=== PATIENT | female | born 1945 | race Caucasian/White ===

== ENCOUNTER 2019-03-21 17:47 | Emergency (ER) | payer OTHER ==
--- NOTE | 2019-03-21 18:55 | ER ---
Nurse's Notes [facility] Name: Ruchi Luna Age: 73 yrs Sex: Female : 1945 Arrival Date: 03/21/2019 Time: 17:49 Bed 26 Private MD: Diagnosis: Groin pain Presentation: 03/21 17:56 Presenting complaint: Patient states: "I have sciatica and it's flaring up and I can't aa5 get my medicine refilled because I moved and my insurance changed". 17:56 Acuity: TANVIR 4 aa5 17:59 Transition of care: patient was not received from another setting of care. Onset of aa5 symptoms was March 21, 2019. Risk Assessment: Do you want to hurt yourself or someone else? Patient reports no desire to harm self or others. Initial Sepsis Screen: Does the patient meet any 2 criteria? No. Patient's initial sepsis screen is negative. Does the patient have a suspected source of infection? No. Patient's initial sepsis screen is negative. Care prior to arrival: None. 17:59 Method Of Arrival: Wheelchair aa5 Historical: - Allergies: 17:59 Erythromycin; aa5 - PMHx: 17:59 Sciatica; Hyperlipidemia; aa5 - PSHx: 17:59 Hysterectomy; Cholecystectomy; Appendectomy; cataracts; aa5 - Immunization history:: Flu vaccine is not up to date. - Social history:: Smoking status: Patient/guardian denies using tobacco. - Ebola Screening: : No symptoms or risks identified at this time. Screenin:04 Abuse screen: Denies threats or abuse. Nutritional screening: No deficits noted. tw2 Tuberculosis screening: No symptoms or risk factors identified. Fall Risk Secondary diagnosis (15 points) impaired mobility. Assessment: 18:24 General: Appears in no apparent distress. comfortable, Behavior is calm, cooperative. mg2 Pain: Complains of pain in both hip Pain does not radiate. Pain currently is 10 out of 10 on a pain scale. Quality of pain is described as aching, Pain began gradually, Is intermittent. Neuro: Level of Consciousness is awake, alert, obeys commands, Oriented to person, place, time, situation. Cardiovascular: Capillary refill < 3 seconds Patient's skin is warm and dry. Respiratory: Airway is patent Respiratory effort is even, unlabored, Respiratory pattern is regular, symmetrical. GI: No deficits noted. : No signs and/or symptoms were reported regarding the genitourinary system. EENT: No deficits noted. Derm: Skin is intact, is healthy with good turgor, Skin is pink, warm \\T\\ dry. normal. Musculoskeletal: Circulation, motion, and sensation intact. Capillary refill < 3 seconds, Reports pain in both hip. Vital Signs: 17:59 BP 102 / 50; Pulse 103; Resp 18 S; Temp 98.3(TE); Pulse Ox 95% on R/A; Weight 61.23 kg aa5 (R); Height 5 ft. 5 in. (165.10 cm) (R); Pain 10/10; 17:59 Body Mass Index 22.46 (61.23 kg, 165.10 cm) aa5 ED Course: 17:49 Patient arrived in ED. as 17:57 Triage completed. aa5 17:57 Arm band placed on. aa5 18:04 Bed in low position. Call light in reach. Adult w/ patient. security monitor on. Pulse tw2 ox on. NIBP on. 18:05 José Purvis, RN is Primary Nurse. mg2 18:25 No provider procedures requiring assistance completed. mg2 18:35 [facility] kb 18:36 Kevin Kearns MD is Attending Physician. kb 19:11 Patient did not have IV access during this emergency room visit. tw2 Administered Medications: No medications were administered Outcome: 18:54 Discharge ordered by MD. kb 19:10 Discharged to home via wheelchair, with family. tw2 19:10 Condition: stable 19:10 Discharge instructions given to patient, family, Instructed on discharge instructions, follow up and referral plans. medication usage, Demonstrated understanding of instructions, follow-up care, medications, Prescriptions given X 2. 19:11 Patient left the ED. tw2 Signatures: Odessa Sandhu FNP-C FNP-[facility] Audri, RN RN aa5 Rosys Jalloh RN RN tw2 José Purvis, MICHAEL RODRIGUEZ mg2
--- NOTE | 2019-03-21 18:55 | EDPHYS ---
Physician Documentation [facility] Name: Ruchi Luna Age: 73 yrs Sex: Female : 1945 Arrival Date: 03/21/2019 Time: 17:49 Bed 26 Private MD: ED Physician Kevin Kearns HPI: 03/22 02:17 This 73 yrs old Female presents to ER via Wheelchair with complaints of kb Sciatica. 02:17 Pt reports she has been diagnosed with sciatica on the left side and now has the exact kb same symptoms on the right side. States her doctor gave her tramadol and a steroid pack for the left side and it got better in a few days. Reports the right side started hurting 3 weeks ago when she moved here from [place]. States the pain started at the lower buttock and radiates around groin. Denies back pain and radiated pain down the leg. Onset: The symptoms/episode began/occurred 3 week(s) ago. Severity of symptoms: At their worst the symptoms were moderate in the emergency department the symptoms are unchanged. The patient has experienced a previous episode. The patient has not recently seen a physician. Historical: - Allergies: 03/21 17:59 Erythromycin; aa5 - PMHx: 17:59 Sciatica; Hyperlipidemia; aa5 - PSHx: 17:59 Hysterectomy; Cholecystectomy; Appendectomy; cataracts; aa5 - Immunization history:: Flu vaccine is not up to date. - Social history:: Smoking status: Patient/guardian denies using tobacco. - Ebola Screening: : No symptoms or risks identified at this time. ROS: 03/22 02:16 Constitutional: Negative for fever, chills, and weight loss, Cardiovascular: Negative kb for chest pain, palpitations, and edema, Respiratory: Negative for shortness of breath, cough, wheezing, and pleuritic chest pain, Abdomen/GI: Negative for abdominal pain, nausea, vomiting, diarrhea, and constipation, Skin: Negative for injury, rash, and discoloration, Neuro: Negative for headache, weakness, numbness, tingling, and seizure. MS/extremity: Positive for pain, of the left gluteal fold, right gluteal fold, right femoral area and left femoral area. Exam: 02:16 Constitutional: This is a well developed, well nourished patient who is awake, alert, kb and in no acute distress. Head/Face: Normocephalic, atraumatic. ENT: Nares patent. No nasal discharge, no septal abnormalities noted. Tympanic membranes are normal and external auditory canals are clear. Oropharynx with no redness, swelling, or masses, exudates, or evidence of obstruction, uvula midline. Mucous membranes moist. Neck: Trachea midline, no thyromegaly or masses palpated, and no cervical lymphadenopathy. Supple, full range of motion without nuchal rigidity, or vertebral point tenderness. No Meningismus. Chest/axilla: Normal chest wall appearance and motion. Nontender with no deformity. No lesions are appreciated. Cardiovascular: Regular rate and rhythm with a normal S1 and S2. No gallops, murmurs, or rubs. Normal PMI, no JVD. No pulse deficits. Respiratory: Lungs have equal breath sounds bilaterally, clear to auscultation and percussion. No rales, rhonchi or wheezes noted. No increased work of breathing, no retractions or nasal flaring. Abdomen/GI: Soft, non-tender, with normal bowel sounds. No distension or tympany. No guarding or rebound. No evidence of tenderness throughout. Back: No spinal tenderness. No costovertebral tenderness. Full range of motion. Skin: Warm, dry with normal turgor. Normal color with no rashes, no lesions, and no evidence of cellulitis. MS/ Extremity: Pulses equal, no cyanosis. Neurovascular intact. Full, normal range of motion. Neuro: Awake and alert, GCS 15, oriented to person, place, time, and situation. Cranial nerves II-XII grossly intact. Motor strength 5/5 in all extremities. Sensory grossly intact. Cerebellar exam normal. Normal gait. 02:16 Abdomen/GI: Rectal exam: rectal tone normal, hemorrhoid(s), external, without bleeding, without inflammation, without thrombosis, without pain. Vital Signs: 03/21 17:59 BP 102 / 50; Pulse 103; Resp 18 S; Temp 98.3(TE); Pulse Ox 95% on R/A; Weight 61.23 kg aa5 (R); Height 5 ft. 5 in. (165.10 cm) (R); Pain 10/10; 17:59 Body Mass Index 22.46 (61.23 kg, 165.10 cm) aa5 MDM: 18:36 Patient medically screened. kb 03/22 02:15 Data reviewed: vital signs, nurses notes. Data interpreted: Pulse oximetry: on room air kb is 95 %. Interpretation: normal. Counseling: I had a detailed discussion with the patient and/or guardian regarding: the historical points, exam findings, and any diagnostic results supporting the discharge/admit diagnosis, the need for outpatient follow up, a family practitioner, to return to the emergency department if symptoms worsen or persist or if there are any questions or concerns that arise at home. Administered Medications: No medications were administered Disposition: 03/21/19 18:54 Discharged to Home. Impression: Groin pain. - Condition is Stable. - Discharge Instructions: Musculoskeletal Pain, Sciatica, [id number]. - Prescriptions for Tramadol 50 mg Oral Tablet - take 1 tablet by ORAL route every 8 hours as needed; 12 tablet. Medrol (Kenji) 4 mg Oral Tablets, Dose Pack - take 1 tablet by ORAL route as directed - follow package instructions; 1 packet. - Medication Reconciliation Form, Thank You Letter, Antibiotic Education, Prescription Opioid Use form. - Follow up: Emergency Department; When: As needed; Reason: Worsening of condition. Follow up: Private Physician; When: 2 - 3 days; Reason: Recheck today's complaints, Continuance of care, Re-evaluation by your physician. Addendum: 03/25/2019 08:39 Co-signature as Attending Physician, Kevin Kearns MD I agree with the assessment and k dr plan of care. Signatures: Odessa Sandhu, MANAGER MED SURG-C MANAGER MED SURG-Ckb Kevin Kearns MD MD [facility] Nenita Goldsmith RN RN aa5 Rossy Jalloh RN RN tw2 Corrections: (The following items were deleted from the chart) 03/21 19:11 18:54 03/21/2019 18:54 Discharged to Home. Impression: Groin pain. Condition is Stable. tw2 Discharge Instructions: Sciatica, [id number]. Forms are Medication Reconciliation Form, Thank You Letter, Antibiotic Education, Prescription Opioid Use. Follow up: Emergency Department; When: As needed; Reason: Worsening of condition. Follow up: Private Physician; When: 2 - 3 days; Reason: Recheck today's complaints, Continuance of care, Re-evaluation by your physician. kb 03/22 02:17 02:16 Constitutional: This is a well developed, well nourished patient who is awake, kb alert, and in no acute distress. Head/Face: Normocephalic, atraumatic. ENT: Nares patent. No nasal discharge, no septal abnormalities noted. Tympanic membranes are normal and external auditory canals are clear. Oropharynx with no redness, swelling, or masses, exudates, or evidence of obstruction, uvula midline. Mucous membranes moist. Neck: Trachea midline, no thyromegaly or masses palpated, and no cervical lymphadenopathy. Supple, full range of motion without nuchal rigidity, or vertebral point tenderness. No Meningismus. Chest/axilla: Normal chest wall appearance and motion. Nontender with no deformity. No lesions are appreciated. Cardiovascular: Regular rate and rhythm with a normal S1 and S2. No gallops, murmurs, or rubs. Normal PMI, no JVD. No pulse deficits. Respiratory: Lungs have equal breath sounds bilaterally, clear to auscultation and percussion. No rales, rhonchi or wheezes noted. No increased work of breathing, no retractions or nasal flaring. Abdomen/GI: Soft, non-tender, with normal bowel sounds. No distension or tympany. No guarding or rebound. No evidence of tenderness throughout. Skin: Warm, dry with normal turgor. Normal color with no rashes, no lesions, and no evidence of cellulitis. Neuro: Awake and alert, GCS 15, oriented to person, place, time, and situation. Cranial nerves II-XII grossly intact. Motor strength 5/5 in all extremities. Sensory grossly intact. Cerebellar exam normal. Normal gait. kb
== END 2019-03-21 19:11 | disposition home or self-care (01) ==
LOC: ER 17:47
DX: R10.30 Lower abdominal pain, unspecified (principal); Z88.3 Allergy status to other anti-infective agents
CPT/HCPCS: 99284

== ENCOUNTER → 2019-08-12 | Day surgery (SDC) | payer OTHER ==
--- NOTE | 2019-08-12 10:36 | RAD REPORT ---
EXAM DESCRIPTION: US - Follow Up Breast Axilla Ltd - 08/12/2019 10:10 am CLINICAL HISTORY: N63.20, R92.8 COMPARISON: Follow Up Breast Axilla Comp dated 07/31/2019 FINDINGS: Preprocedure left breast sonography was performed prior to ultrasound-guided core needle b iopsy. During pre-procedure ultrasound, and the vague subcentimeter lesion in the periareolar left breast wa s difficult to localize. The lesions seen on 07/31/2019 ultrasound was difficult to reproduce with co nfidence for biopsy. For this reason, biopsy was deferred at this time. Thus, it is recommended that a diagnostic left breast mammogram and surveillance ultrasound of the left breast be performed in 6 [facility] for continued monitoring. IMPRESSION: It was difficult to confidently reproduce the 4 mm lesion periareolar left breast previo usly noted on today's pre-procedure radiologist directed ultrasound. Ultrasound-guided core biopsy wa s thus deferred at this time. It is recommended the patient undergo six-month follow-up left breast d iagnostic mammography and left breast ultrasound for monitoring. BI-RAD: 3, probably benign ResultCode: PB6
== END | disposition home or self-care (01) ==
LOC: DS 09:27
PROVIDERS: ATTEND Family Medicine
DX: N63.20 Unspecified lump in the left breast, unspecified quadrant (principal); R92.8 Other abnormal and inconclusive findings on diagnostic imaging of breast; Z53.8 Procedure and treatment not carried out for other reasons
CPT/HCPCS: 76642

== ENCOUNTER 2019-09-27 18:45 | Emergency (ER) | payer OTHER ==
--- OUTSIDE RECORDS SUMMARY | 2019-09-27 18:47 | XMS REPORT ---
:1945 Author Organization [employer] Care Team Providers Name Role Phone Alexandra Paula Provider Role Unavailable Allergies, Adverse Reactions, Alerts Substance Reaction Event Type erthromycin upset stomach Drug Allergy Aspirin rash Drug Allergy Problems Problem Type Condition Code Onset Dates Condition Status Problem Tremor R25.1 Active Problem Osteoporosis screening Z13.820 Active Problem Vaginal discharge N89.8 Active Problem Hemorrhoids, unspecified hemorrhoid K64.9 Active type Problem Osteoarthritis of right hip, M16.11 Active unspecified osteoarthritis type Problem Vaginal yeast infection B37.3 Active Problem Hyperlipidemia, unspecified E78.5 Active hyperlipidemia type Problem Abnormality of left breast on R92.8 Active screening mammogram Problem Age-related osteoporosis without M81.0 Active current pathological fracture Problem Other chronic pain G89.29 Active Problem Depression screening Z13.31 Active Assessment Hemorrhoids, unspecified hemorrhoid K64.9 Active type Assessment Vaginal yeast infection B37.3 Active Problem High cholesterol E78.00 Active Problem Coccygeal pain M53.3 Active Problem History of left hip replacement Z96.642 Active Problem Gallstones K80.20 Active Problem Postnasal drip R09.82 Active Problem Rectal pain K62.89 Active Medications Medication Code Code Instructions Start End Status Dosage System Date Date Meloxicam [facility] NAMED [facility] [address]-18 7.5 MG Orally Mar 28, Active 1 tablet as Once daily 2019 needed for pain; take with food or milk Simvastatin ND 43988480524 10 MG Orally Active 1 tablet in Once a day the evening Trazodone HCl ND 39294893716 50 MG Orally Active 1 tablet at Once a day bedtime as needed Fluconazole ND 99106545497 150 MG Orally Sep 18, Sep 20, Active as directed 1 tablet now; 2019 2019 repeat prn in 3 days if still symptomatic Gabapentin ND 82589143295 100 MG Orally Active 1 capsule as Twice a day needed for pain B Complex ND 41716021536 - Orally Active as directed Align ND 28952901087 - Orally Active as directed Proctofoam HC ND 42831147937 1-1 % Rectal Sep 18October Active 1 application Three times a 2019 to rectal day 2019 area Propranolol FORMER[facility] NAMED [facility] 65042429804 10 MG Orally Active 1 tablet on HCl Once a day an empty stomach Results No Known Results Summary Purpose [employer] Submission
--- OUTSIDE RECORDS SUMMARY | 2019-09-27 18:47 | XMS REPORT ---
:1945 Author Organization [employer] Care Team Providers Name Role Phone Alexandra Paula Provider Role Unavailable Allergies No Known Allergies Problems Problem Type Condition Code Onset Dates [...] Active Problem Depression screening Z13.31 Active Assessment Coccygeal pain M53.3 Active Problem High cholesterol E78.00 Active Problem Coccygeal pain M53.3 Active Problem History of left hip replacement Z96.642 Active Problem Gallstones K80.20 Active Problem Postnasal drip R09.82 Active Problem Rectal pain K62.89 Active Medications Medication Code System Code Instructions Start End Date Status Dosage Date Meloxicam [facility] 10582376057 15 MG Orally Once Mar 28, Active 1/2 tablet daily 2020 to 1 tablet Results No Known Results Summary Purpose [employer] Submission
--- NOTE | 2019-09-27 19:50 | RAD REPORT ---
EXAM DESCRIPTION: RAD - Chest Single View - 09/27/2019 7:39 pm CLINICAL HISTORY: COUGH Chest pain. COMPARISON: No comparisons FINDINGS: Portable technique limits examination quality. The lungs are emphysematous but grossly clear. The heart is normal in size. No displaced fractures. IMPRESSION: Mild COPD.
--- NOTE | 2019-09-27 19:50 | RAD REPORT ---
EXAM DESCRIPTION: CT - Head Brain Wo Cont - 09/27/2019 7:41 pm CLINICAL HISTORY: DIZZINESS Headache, drowsiness COMPARISON: No comparisons TECHNIQUE: All CT scans are performed using dose optimization technique as appropriate and may inclu de automated exposure control or mA/KV adjustment according to patient size. FINDINGS: No intracranial hemorrhage, hydrocephalus or extra-axial fluid collection.Mild generalized brain atrophy is present with mild periventricular and deep white matter chronic microvascular ische gail changes.No areas of brain edema or evidence of midline shift. The paranasal sinuses and mastoids are clear. The calvarium is intact. IMPRESSION: No acute intracranial abnormality.
--- NOTE | 2019-09-27 20:25 | RAD REPORT ---
EXAM DESCRIPTION: US - CP - 09/27/2019 8:07 pm CLINICAL HISTORY: DIZZINESS Headache, drowsiness COMPARISON: No comparisons TECHNIQUE: Real-time sonographic evaluation of both carotid systems was performed. Doppler interroga tion was performed with waveform tracing bilaterally. FINDINGS: Normal high resistance waveforms are noted in both external carotid arteries. The common c arotid arteries and internal carotid arteries show normal low resistance waveforms. Mild hard plaquing is seen in both carotid bulbs, slightly greater on the left. Peak systolic and end diastolic velocity values and the ICA/CCA ratios are in the non-hemodynamically significant range. Antegrade flow seen in both vertebral arteries. IMPRESSION: Mild hard plaquing is seen in both carotid bulbs, slightly greater on the left. No evidence of a hemodynamically significant stenosis.
[2019-09-27] MEDS ORDERED: MECLIZINE HCL 12.5 MG TAB ONE (20:32)
[2019-09-27] MEDS ORDERED: NA CHLORIDE 0.9% 1,000 ML ONE (20:32)
[2019-09-27] MEDS ORDERED: ONDANSETRON 4 MG/2 ML VIAL ONE (20:32)
[2019-09-27] MEDS ORDERED: NA CHLORIDE 0.9% 500 ML ONE (20:32)
[2019-09-27 20:41] LABS: Absolute Lymphocytes (CBC) 0.9 K/uL (0.7-4.9); Basophils % 0.9 % (0-1.3); Lymphocytes % 10.7 % (15.3-44.8); MPV 9.9 fL (7.6-11.3); RBC Red Blood Cell Count 4.72 M/uL (3.86-4.86)
[2019-09-27 20:46] LABS: Protime INR 1.08
[2019-09-27 21:05] LABS: ALT/SGPT 24 U/L (12-78); AST/SGOT 20 U/L (15-37); Albumin 3.1 g/dL (3.4-5.0); Alkaline Phosphatase 70 U/L (45-117); BUN Blood Urea Nitrogen 20 mg/dL (7-18); Bicarbonate 28 mmol/L (21-32); Bilirubin Direct 0.1 mg/dL (0-0.2); Bilirubin Total 0.4 mg/dL (0.2-1.0); Glucose Level 134 mg/dL (74-106); Lipase 123 U/L (73-393); Magnesium 2.1 mg/dL (1.8-2.4); NT PRO-BNP 79 pg/mL (<125); Potassium 3.8 mmol/L (3.5-5.1); Protein, Total 6.7 g/dL (6.4-8.2); Sodium Level 143 mmol/L (136-145); Troponin (Emerg Dept Use Only) < 0.02 ng/mL (0.0-0.045)
--- NOTE | 2019-09-27 21:25 | EDPHYS ---
Physician Documentation [facility] Name: Ruchi Luna Age: 73 yrs Sex: Female : 1945 Arrival Date: 09/27/2019 Time: 18:59 Bed 30 Private MD: ED Physician Baron Chavez HPI: 09/27 19:28 This 73 yrs old Female presents to ER via EMS with complaints of dizziness. leela 19:28 The patient complains of pain to the top of head, forehead, left frontal area and right leela frontal area. The patient describes the headache as aching. Onset: The symptoms/episode began/occurred just prior to arrival, today. didn't eat, conti, dizziness. The patient presents with dizziness. Onset: The symptoms/episode began/occurred just prior to arrival. Context: occurred while the patient was shopping at [employer]. Associated signs and symptoms: The patient has no apparent associated signs or symptoms. Historical: - Allergies: 19:05 Erythromycin; wh 19:05 CORN CONTAINING PRODUCTS; wh 19:05 Tomato (Solanum Lycopersicum); wh 19:05 Aspirin; wh 19:05 EGG/POULTRY; wh 19:05 Milk/dairy products; wh - PMHx: 19:05 Hyperlipidemia; sciatica; wh - PSHx: 19:05 Appendectomy; Cholecystectomy; wh - Immunization history:: Adult Immunizations not up to date. - Coronavirus screen:: The patient has NOT traveled to [place], [place], or [place] in the past 14 days. - Social history:: Smoking status: Patient/guardian denies using. - Family history:: not pertinent. - Ebola Screening: : Patient negative for fever greater than or equal to 101.5 degrees Fahrenheit, and additional compatible Ebola Virus Disease symptoms Patient denies exposure to infectious person. ROS: 19:28 Constitutional: Negative for fever, chills, and weight loss, Eyes: Negative for injury, leela pain, redness, and discharge, ENT: Negative for injury, pain, and discharge, Neck: Negative for injury, pain, and swelling, Cardiovascular: Negative for chest pain, palpitations, and edema, Respiratory: Negative for shortness of breath, cough, wheezing, and pleuritic chest pain, Abdomen/GI: Negative for abdominal pain, nausea, vomiting, diarrhea, and constipation, Back: Negative for injury and pain, : Negative for injury, bleeding, discharge, and swelling, MS/Extremity: Negative for injury and deformity, Skin: Negative for injury, rash, and discoloration, Psych: Negative for depression, anxiety, suicide ideation, homicidal ideation, and hallucinations, Allergy/Immunology: Negative for hives, rash, and allergies, Endocrine: Negative for neck swelling, polydipsia, polyuria, polyphagia, and marked weight changes, Hematologic/Lymphatic: Negative for swollen nodes, abnormal bleeding, and unusual bruising. 19:28 Neuro: Positive for dizziness. Exam: 19:28 Constitutional: This is a well developed, well nourished patient who is awake, alert, leela and in no acute distress. Head/Face: Normocephalic, atraumatic. Eyes: Pupils equal round and reactive to light, extra-ocular motions intact. Lids and lashes normal. Conjunctiva and sclera are non-icteric and not injected. Cornea within normal limits. Periorbital areas with no swelling, redness, or edema. ENT: Nares patent. No nasal discharge, no septal abnormalities noted. Tympanic membranes are normal and external auditory canals are clear. Oropharynx with no redness, swelling, or masses, exudates, or evidence of obstruction, uvula midline. Mucous membranes moist. Neck: Trachea midline, no thyromegaly or masses palpated, and no cervical lymphadenopathy. Supple, full range of motion without nuchal rigidity, or vertebral point tenderness. No Meningismus. Chest/axilla: Normal chest wall appearance and motion. Nontender with no deformity. No lesions are appreciated. Cardiovascular: Regular rate and rhythm with a normal S1 and S2. No gallops, murmurs, or rubs. Normal PMI, no JVD. No pulse deficits. Respiratory: Lungs have equal breath sounds bilaterally, clear to auscultation and percussion. No rales, rhonchi or wheezes noted. No increased work of breathing, no retractions or nasal flaring. Abdomen/GI: Soft, non-tender, with normal bowel sounds. No distension or tympany. No guarding or rebound. No evidence of tenderness throughout. Back: No spinal tenderness. No costovertebral tenderness. Full range of motion. Female : Normal external genitalia. Skin: Warm, dry with normal turgor. Normal color with no rashes, no lesions, and no evidence of cellulitis. MS/ Extremity: Pulses equal, no cyanosis. Neurovascular intact. Full, normal range of motion. Neuro: Awake and alert, GCS 15, oriented to person, place, time, and situation. Cranial nerves II-XII grossly intact. Motor strength 5/5 in all extremities. Sensory grossly intact. Cerebellar exam normal. Normal gait. Psych: Awake, alert, with orientation to person, place and time. Behavior, mood, and affect are within normal limits. 19:28 Neck: ROM/movement: is normal, no acute changes, Meningeal signs: are not present, Kernig's sign is negative, Brudzinski's sign is negative. 19:28 Cardiovascular: Rate: normal, Rhythm: regular, Pulses: Pulses are 4+ in bilateral radial, brachial, femoral, popliteal, posterior tibial and and dorsalis pedis arteries.. Heart sounds: normal, normal S1and S2, no S3 or S4, no murmur, no rub, no gallop, Edema: is not appreciated, JVD: is not appreciated. 19:28 Musculoskeletal/extremity: DVT Exam: No signs of deep vein thrombosis. no pain, no swelling, no tenderness, negative Homans' sign noted on exam, no appreciated bluish discoloration, no erythema, no increased warmth. Vital Signs: 19:05 BP 106 / 79; Pulse 85; Resp 18; Temp 97.5; Pulse Ox 98% ; Weight 61.23 kg; Height 5 ft. wh 5 in. (165.10 cm); 19:30 BP 109 / 52; Pulse 87; Resp 18; Pulse Ox 97% on R/A; Pain 0/10; vc 20:45 BP 102 / 62; Pulse 85; Resp 18; Pulse Ox 96% on R/A; vc 21:45 BP 110 / 72; Pulse 87; Resp 18; Pulse Ox 97% on R/A; vc 19:05 Body Mass Index 22.46 (61.23 kg, 165.10 cm) MDM: 19:18 Patient medically screened. [facility] 19:31 Data reviewed: vital signs, nurses notes, lab test result(s), EKG, radiologic studies, [facility] CT scan, doppler. 09/27 19:27 Order name: Basic Metabolic Panel; Complete Time: 21:22 [facility] 09/27 19:27 Order name: CBC with Diff; Complete Time: 21:01 [facility] 09/27 19:27 Order name: LFT's; Complete Time: 21:22 [facility] 09/27 19:27 Order name: Magnesium; Complete Time: 21:22 [facility] 09/27 19:27 Order name: NT PRO-BNP; Complete Time: 21:22 [facility] 09/27 19:27 Order name: PT-INR; Complete Time: 21:01 [facility] 09/27 19:27 Order name: Troponin (emerg Dept Use Only); Complete Time: 21:22 [facility] 09/27 19:27 Order name: XRAY Chest (1 view); Complete Time: 20:24 [facility] 09/27 19:27 Order name: Lipase; Complete Time: 21:22 [facility] 09/27 19:27 Order name: CT Head Brain wo Cont; Complete Time: 20:24 [facility] 09/27 19:27 Order name: Urine Culture [facility] 09/27 19:27 Order name: US Carotid Artery Bilateral; Complete Time: 20:38 [facility] 09/27 21:29 Order name: Urine Dipstick--Ancillary (enter results) 09/27 19:27 Order name: EKG; Complete Time: 19:28 [facility] 09/27 19:27 Order name: Cardiac monitoring; Complete Time: 20:19 [facility] 09/27 19:27 Order name: EKG - Nurse/Tech; Complete Time: 20:21 [facility] 09/27 19:27 Order name: IV Saline Lock; Complete Time: 20:33 [facility] 09/27 19:27 Order name: Labs collected and sent; Complete Time: 20:33 [facility] 09/27 19:27 Order name: O2 Per Protocol; Complete Time: 20:21 [facility] 09/27 19:27 Order name: O2 Sat Monitoring; Complete Time: 20:21 [facility] 09/27 19:27 Order name: Urine Dipstick-Ancillary (obtain specimen); Complete Time: 21:18 [facility] 09/27 19:27 Order name: Diet Heart Healthy; Complete Time: 19:29 [facility] Administered Medications: 20:30 Drug: NS 0.9% 500 ml Route: IV; Rate: bolus; Site: left antecubital; vc 20:30 Drug: Zofran 4 mg Route: IVP; Site: left antecubital; vc 21:30 Follow up: Response: No adverse reaction vc 20:30 Drug: Meclizine 25 mg Route: PO; vc 21:30 Follow up: Response: No adverse reaction vc 20:45 Drug: NS 0.9% 1000 ml Route: IV; Rate: 125 ml/hr; Site: left antecubital; vc 22:30 Follow up: IV Status: IV infiltrated; IV Intake: 300ml vc 22:10 Drug: Rocephin 1 grams {Note: Given left gluteus freedom.} Route: IV; Rate: per vc protocol; Site: Other; 22:10 Drug: Cipro 500 mg Route: PO; vc 22:29 Follow up: Response: Medication administered at discharge. vc Disposition: 09/27/19 21:24 Discharged to Home. Impression: Dizziness and giddiness, Urinary tract infection, site not specified. - Condition is Stable. - Discharge Instructions: Benign Positional Vertigo, Dizziness, Urinary Tract Infection, Adult, Vertigo, Urinary Tract Infection, Adult, [id number], Dizziness, [id number]. - Prescriptions for Meclizine 25 mg Oral Tablet - take 1 tablet by ORAL route every 8 hours As needed; 30 tablet. Zofran 4 mg Oral Tablet - take 1 tablet by ORAL route every 12 hours As needed; 14 tablet. Cipro 250 mg Oral Tablet - take 1 tablet by ORAL route every 12 hours; 14 tablet. - Medication Reconciliation Form, Thank You Letter, Antibiotic Education, Prescription Opioid Use form. - Follow up: Private Physician; When: 2 - 3 days; Reason: Recheck today's complaints, Continuance of care, Re-evaluation by your physician. Follow up: Lee Lee MD; When: 2 - 3 days; Reason: Recheck today's complaints, Re-evaluation by your physician. - Problem is chronic. - Symptoms have improved. Signatures: Dispatcher [employer] EDMS Baron Chavez MD MD cha Habalo, Winsy wh Cal[place]ote, Vanessa, RN RN vc Corrections: (The following items were deleted from the chart) 22:24 21:24 09/27/2019 21:24 Discharged to Home. Impression: Dizziness and giddiness; Urinary vc tract infection, site not specified. Condition is Stable. Discharge Instructions: Benign Positional Vertigo, Dizziness, Vertigo, Dizziness, Grrg-zk-[id number]. Prescriptions for Meclizine 25 mg Oral Tablet - take 1 tablet by ORAL route every 8 hours As needed; 30 tablet, Zofran 4 mg Oral Tablet - take 1 tablet by ORAL route every 12 hours As needed; 14 tablet. and Forms are Medication Reconciliation Form, Thank You Letter, Antibiotic Education, Prescription Opioid Use. Follow up: Private Physician; When: 2 - 3 days; Reason: Recheck today's complaints, Continuance of care, Re-evaluation by your physician. Follow up: Lee Lee; When: 2 - 3 days; Reason: Recheck today's complaints, Re-evaluation by your physician. Problem is chronic. Symptoms have improved. leela
--- NOTE | 2019-09-27 21:25 | ER ---
Nurse's Notes [facility] Name: Ruchi Luna Age: 73 yrs Sex: Female : 1945 Arrival Date: 09/27/2019 Time: 18:59 Bed 30 Private MD: Diagnosis: Dizziness and giddiness;Urinary tract infection, site not specified Presentation: 09/27 19:02 Presenting complaint: EMS states: Pt was shopping at [employer] for a couple of hours when she experienced dizziness and weakness. Denies LOC. Transition of care: patient was not received from another setting of care. Onset of symptoms was September 27, 2019. Risk Assessment: Do you want to hurt yourself or someone else? Patient reports no desire to harm self or others. Initial Sepsis Screen: Does the patient meet any 2 criteria? No. Patient's initial sepsis screen is negative. Does the patient have a suspected source of infection? No. Patient's initial sepsis screen is negative. Care prior to arrival: Glucose check: 145. 19:02 Method Of Arrival: EMS: [facility] 19:02 Acuity: TANVIR 3 wh Historical: - Allergies: 19:05 Erythromycin; wh 19:05 CORN CONTAINING PRODUCTS; wh 19:05 Tomato (Solanum Lycopersicum); wh 19:05 Aspirin; wh 19:05 EGG/POULTRY; wh 19:05 Milk/dairy products; wh - PMHx: 19:05 Hyperlipidemia; sciatica; wh - PSHx: 19:05 Appendectomy; Cholecystectomy; wh - Immunization history:: Adult Immunizations not up to date. - Coronavirus screen:: The patient has NOT traveled to [place], [place], or [place] in the past 14 days. - Social history:: Smoking status: Patient/guardian denies using. - Family history:: not pertinent. - Ebola Screening: : Patient negative for fever greater than or equal to 101.5 degrees Fahrenheit, and additional compatible Ebola Virus Disease symptoms Patient denies exposure to infectious person. Screenin:06 Abuse screen: Denies threats or abuse. Denies injuries from another. Nutritional wh screening: No deficits noted. Tuberculosis screening: No symptoms or risk factors identified. Fall Risk None identified. Assessment: 19:43 Reassessment: Patient to CT via wheelchair. vc 20:00 General: Appears in no apparent distress. uncomfortable, ill, Behavior is cooperative, vc appropriate for age, agitated. Pain: Denies pain. Neuro: Level of Consciousness is awake, alert, obeys commands, Oriented to person, place, time, situation. Neuro: Cardiovascular: Patient's skin is warm and dry. Respiratory: Respiratory effort is even, unlabored, Respiratory pattern is regular, symmetrical. GI: Abdomen is flat, Reports nausea. : Urine is cloudy, green. EENT: No signs and/or symptoms were reported regarding the EENT system. Derm: Skin temperature is cool. Musculoskeletal: Range of motion: intact in all extremities. 21:00 Reassessment: Patient and/or family updated on plan of care and expected duration. Pain vc level reassessed. Patient is alert, oriented x 3, equal unlabored respirations, skin warm/dry/pink. 22:00 Reassessment: Patient and/or family updated on plan of care and expected duration. Pain vc level reassessed. Patient is alert, oriented x 3, equal unlabored respirations, skin warm/dry/pink. Patient denies pain at this time. Patient states feeling better. Patient states symptoms have improved. Vital Signs: 19:05 BP 106 / 79; Pulse 85; Resp 18; Temp 97.5; Pulse Ox 98% ; Weight 61.23 kg; Height 5 ft. 5 in. (165.10 cm); 19:30 BP 109 / 52; Pulse 87; Resp 18; Pulse Ox 97% on R/A; Pain 0/10; vc 20:45 BP 102 / 62; Pulse 85; Resp 18; Pulse Ox 96% on R/A; vc 21:45 BP 110 / 72; Pulse 87; Resp 18; Pulse Ox 97% on R/A; vc 19:05 Body Mass Index 22.46 (61.23 kg, 165.10 cm) ED Course: 18:59 Patient arrived in ED. 19:02 Teressa Ny, RN is Primary Nurse. vc 19:03 Triage completed. 19:06 Arm band placed on right wrist. 19:07 Patient has correct armband on for positive identification. Bed in low position. Call light in reach. Side rails up X 1. Pulse ox on. NIBP on. 19:18 Baron Chavez MD is Attending Physician. [facility] 19:38 XRAY Chest (1 view) In Process Unspecified. EDMS 19:45 CT Head Brain wo Cont In Process Unspecified. EDMS 20:11 US Carotid Artery Bilateral In Process Unspecified. EDMS 20:32 Inserted saline lock: 22 gauge in left antecubital area, using aseptic technique. lt1 20:32 Initial lab(s) drawn, by me, sent to lab. EKG done, by ED staff, reviewed by Baron Chavez MD. 21:18 Straight cath inserted, using sterile technique, 16 Fr. Specimen obtained. Returned lt1 rosales urine. 21:18 Urine Culture Sent. lt1 21:24 Lee Lee MD is Referral Physician. leela 22:20 No provider procedures requiring assistance completed. IV discontinued, intact, vc bleeding controlled, No redness/swelling at site. Administered Medications: 20:30 Drug: NS 0.9% 500 ml Route: IV; Rate: bolus; Site: left antecubital; vc 20:30 Drug: Zofran 4 mg Route: IVP; Site: left antecubital; vc 21:30 Follow up: Response: No adverse reaction vc 20:30 Drug: Meclizine 25 mg Route: PO; vc 21:30 Follow up: Response: No adverse reaction vc 20:45 Drug: NS 0.9% 1000 ml Route: IV; Rate: 125 ml/hr; Site: left antecubital; vc 22:30 Follow up: IV Status: IV infiltrated; IV Intake: 300ml vc 22:10 Drug: Rocephin 1 grams {Note: Given left gluteus freedom.} Route: IV; Rate: per vc protocol; Site: Other; 22:10 Drug: Cipro 500 mg Route: PO; vc 22:29 Follow up: Response: Medication administered at discharge. vc Intake: 22:30 IV: 300ml; Total: 300ml. vc Outcome: 21:24 Discharge ordered by . leela 22:20 Discharged to home via wheelchair, with family. vc 22:20 Condition: good 22:20 Discharge instructions given to patient, family. 22:24 Patient left the ED. vc Signatures: Dispatcher [employer] EDBaron Arevalo MD MD cha Habalo, Kevin Nielson, Cecilia lt1 Teressa Ny RN RN vc Corrections: (The following items were deleted from the chart) 22:36 22:32 General: Appears in no apparent distress. uncomfortable, ill, Behavior is vc cooperative, appropriate for age, agitated, vc 22:36 22:32 Pain: Denies pain. vc vc 22:36 22:32 Neuro: Level of Consciousness is awake, alert, obeys commands, Oriented to vc person, place, time, situation, vc 22:36 22:32 Cardiovascular: Patient's skin is warm and dry. vc vc 22:36 22:32 Respiratory: Respiratory effort is even, unlabored, Respiratory pattern is vc regular, symmetrical, vc 22:36 22:32 GI: Abdomen is flat, Reports nausea, vc vc 22:36 22:32 : Urine is cloudy, green, vc vc 22:36 22:32 EENT: No signs and/or symptoms were reported regarding the EENT system. vc vc : 22:32 Derm: Skin temperature is cool vc vc 22:36 22:32 Musculoskeletal: Range of motion: intact in all extremities, vc vc 22:36 22:32 Neuro: vc vc 22:36 22:32 Musculoskeletal: vc vc :36 22:32 Musculoskeletal: vc vc 22:36 22:35 General: Appears Behavior is vc vc
[2019-09-27] MEDS ORDERED: CIPROFLOXACIN HCL 500 MG TAB ONE (21:46)
[2019-09-27] MEDS ORDERED: CEFTRIAXONE/SWI 1gm 1 GM/10 ML SYR ONE (21:46)
[2019-09-27 21:47] LABS: Urine Blood 1+ (NEG); Urine Glucose NEGATIVE (NEG); Urine Protein 2+ (NEG); Urine pH 5.5 (5.0-7.0)
[2019-09-27] MEDS ORDERED: LIDOCAINE 1% MPF 5 ML VIAL ONE (21:53)
[2019-09-27] MEDS ORDERED: CEFTRIAXONE 1000 MG/VIAL ONE (21:53)
[2019-09-27 22:32] VITALS: TEMP 97.5
[2019-09-27 22:33] VITALS: BP 109/52; O2SAT 97
--- NOTE | 2019-09-29 06:29 | EKG ---
Test Date: 2019-09-27 Test Time: 20:19:48 Pump House Operator: BEN MEASUREMENT RESULTS: Intervals: Rate: 81 DE: 130 QRSD: 74 QT: 384 QTc: 446 [place]: P: -4 DE: 130 QRS: 60 T: 41 INTERPRETIVE STATEMENTS: Normal sinus rhythm Cannot rule out Anterior infarct, age undetermined Abnormal ECG Compared to ECG 02/03/1997 08:09:00 Myocardial infarct finding now present Electronically Signed On 09-29-19 06:28:46 CHAIR UPHOLSTERER by Matt Love
== END 2019-09-27 22:24 | disposition home or self-care (01) ==
LOC: ER 18:45
DX: R42 Dizziness and giddiness (principal); N39.0 Urinary tract infection, site not specified; Z88.3 Allergy status to other anti-infective agents; Z91.018 Allergy to other foods; Z91.011 Allergy to milk products; Z91.012 Allergy to eggs
CPT/HCPCS: 96361; 93005; 85025; 87086; 80048; 36415; 83735; 85610; 80076; 81003; 84484; 83690; 83880; 70450; 71045; 93880; 51702; 96375; 96374; 99284; J0696; J7040; J7030; J2405; 87088; J8597

== ENCOUNTER 2019-10-19 12:54 | Emergency (ER) | payer OTHER ==
--- OUTSIDE RECORDS SUMMARY | 2019-10-19 12:56 | XMS REPORT ---
[...] End Status Dosage System Date Date Meloxicam [facility] [address]-80 7.5 MG Orally Mar 28, Active 1 tablet as Once daily 2019 needed for pain; take with food or milk Simvastatin ND 43174913859 10 MG Orally Active 1 tablet in Once a day the evening Trazodone HCl ND 52864334554 50 MG Orally Active 1 tablet at Once a day bedtime as needed Fluconazole ND 78328413010 150 MG Orally Sep 18, Sep 20, Active as directed 1 tablet now; 2019 2019 repeat prn in 3 days if still symptomatic Gabapentin ND 54699484932 100 MG Orally Active 1 capsule as Twice a day needed for pain B Complex ND 16244674142 - Orally Active as directed Align ND 27200869699 - Orally Active as directed Proctofoam HC ND 53079979072 1-1 % Rectal Sep 18October Active 1 application Three times a 2019 to rectal day 2019 area Propranolol [facility] 71106321305 10 MG Orally Active 1 tablet on HCl Once a day an empty stomach Results No Known Results Summary Purpose [employer] Submission
--- OUTSIDE RECORDS SUMMARY | 2019-10-19 12:56 | XMS REPORT ---
[...] Start End Date Status Dosage Date Meloxicam [facility] 95489186627 15 MG Orally Once Mar 28, Active 1/2 tablet daily 2020 to 1 tablet Results No Known Results Summary Purpose [employer] Submission
--- NOTE | 2019-10-19 13:24 | ER ---
Nurse's Notes [facility] Name: Ruchi Luna Age: 73 yrs Sex: Female : 1945 Arrival Date: 10/19/2019 Time: 13:03 Bed 16 Private MD: Diagnosis: Low back pain Presentation: 13:18 Chief complaint: Patient states: has conti d"spine issues" for a long time, is having a iw flare up today, is supposed to get in to see ortho in [place] but pain has increased. Coronavirus screen: The patient has NOT traveled to [place] in the past 14 days. Proceed with normal triage procedures. Ebola Screen: Patient negative for fever greater than or equal to 101.5 degrees Fahrenheit, and additional compatible Ebola Virus Disease symptoms Patient denies exposure to infectious person. Patient denies travel to an Ebola-affected area in the 21 days before illness onset. No symptoms or risks identified at this time. Initial Sepsis Screen: Does the patient meet any 2 criteria? No. Patient's initial sepsis screen is negative. Does the patient have a suspected source of infection? No. Patient's initial sepsis screen is negative. Risk Assessment: Do you want to hurt yourself or someone else? Patient reports no desire to harm self or others. 13:18 Method Of Arrival: Ambulatory iw 13:18 Acuity: TANVIR 4 iw 13:27 Onset of symptoms was October 19, 2019. ca1 Historical: - Allergies: 13:20 Aspirin; iw 13:20 CORN CONTAINING PRODUCTS; iw 13:20 EGG/POULTRY; iw 13:20 Erythromycin; iw 13:20 Milk/dairy products; iw 13:20 Tomato (Solanum Lycopersicum); iw 13:20 Demerol; iw - PMHx: 13:20 Hyperlipidemia; sciatica; iw - PSHx: 13:20 Appendectomy; Cholecystectomy; iw - Immunization history:: Adult Immunizations. - Social history:: Smoking status: Patient denies any tobacco usage or history of. Screenin:24 Abuse screen: Denies threats or abuse. Denies injuries from another. Nutritional ca1 screening: No deficits noted. Tuberculosis screening: No symptoms or risk factors identified. Fall Risk None identified. Assessment: 13:24 General: Appears in no apparent distress. comfortable, Behavior is calm, cooperative, ca1 appropriate for age. Pain: Complains of pain in back. Neuro: Level of Consciousness is awake, alert, obeys commands. Cardiovascular: Heart tones S1 S2 present Capillary refill < 3 seconds Patient's skin is warm and dry. Respiratory: Airway is patent Respiratory effort is even, unlabored, Respiratory pattern is regular, symmetrical, Breath sounds are clear bilaterally. GI: Abdomen is flat, non-distended, Bowel sounds present X 4 quads. Abd is soft and non tender X 4 quads. : No signs and/or symptoms were reported regarding the genitourinary system. EENT: No signs and/or symptoms were reported regarding the EENT system. Derm: Skin is intact, is healthy with good turgor, Skin is pink, warm \\T\\ dry. Musculoskeletal: Circulation, motion, and sensation intact. Capillary refill < 3 seconds. Vital Signs: 13:29 BP 118 / 62; Pulse 79; Resp 17; Temp 97.5(TE); Pulse Ox 98% on R/A; jb1 13:31 Pain 8/10; jb1 ED Course: 13:03 Patient arrived in ED. mr 13:16 Felice Amin, LINDEN is PHCP. pm1 13:16 Baron Chavez MD is Attending Physician. pm1 13:19 Triage completed. iw 13:20 Arm band placed on. iw 13:24 Marysol Phelps RN is Primary Nurse. ca1 13:24 Patient has correct armband on for positive identification. Bed in low position. Call ca1 light in reach. Side rails up X 1. 13:32 No provider procedures requiring assistance completed. Patient did not have IV access ca1 during this emergency room visit. Administered Medications: No medications were administered Outcome: 13:24 Discharge ordered by . pm1 13:32 Discharged to home ambulatory. ca1 13:32 Condition: good 13:32 Discharge instructions given to patient, Instructed on discharge instructions, follow up and referral plans. no drinking with medication, no driving heavy equipment, Demonstrated understanding of instructions, follow-up care, medications, Prescriptions given X 1. 13:32 Patient left the ED. ca1 Signatures: Matthew Borja jb1 Tarik Cookie NoelJaclyn RN RN iw Felice Amin, LINDEN SPRING MACHINE OPERATOR pm1 Marysol Phelps RN RN ca1
--- NOTE | 2019-10-19 13:24 | EDPHYS ---
Physician Documentation [facility] Name: Ruchi Luna Age: 73 yrs Sex: Female : 1945 Arrival Date: 10/19/2019 Time: 13:03 Bed 16 Private MD: Baron Basurto HPI: 13:32 This 73 yrs old Female presents to ER via Ambulatory with complaints of Low pm1 back pain. 13:32 The patient presents with pain flare up of back pain. History of injury to L3, L4, and pm1 L5. The symptoms are located in the low back. The pain does not radiate. The problem was sustained from a chronic condition, with occasional flare up of pain. Onset: The symptoms/episode began/occurred today. Modifying factors: The patient symptoms are alleviated by tramadol. PCP gave gabapentin but it does not seem to help. Associated signs and symptoms: Pertinent negatives: abdominal pain, dysuria, fever, incontinence, numbness, tingling, weakness. The patient has experienced similar episodes in the past, several times. Historical: - Allergies: 13:20 Aspirin; iw 13:20 CORN CONTAINING PRODUCTS; iw 13:20 EGG/POULTRY; iw 13:20 Erythromycin; iw 13:20 Milk/dairy products; iw 13:20 Tomato (Solanum Lycopersicum); iw 13:20 Demerol; iw - PMHx: 13:20 Hyperlipidemia; sciatica; iw - PSHx: 13:20 Appendectomy; Cholecystectomy; iw - Immunization history:: Adult Immunizations. - Social history:: Smoking status: Patient denies any tobacco usage or history of. ROS: 13:32 Constitutional: Negative for fever, chills, and weight loss, Cardiovascular: Negative pm1 for chest pain, palpitations, and edema, Respiratory: Negative for shortness of breath, cough, wheezing, and pleuritic chest pain. 13:32 : Negative for injury, bleeding, discharge, and swelling, MS/Extremity: Negative for injury and deformity, Skin: Negative for injury, rash, and discoloration, Neuro: Negative for headache, weakness, numbness, tingling, and seizure. 13:32 Back: Positive for of the low back area, pain. 13:32 All other systems are negative. Exam: 13:32 Constitutional: This is a well developed, well nourished patient who is awake, alert, pm1 and in no acute distress. Head/Face: Normocephalic, atraumatic. Neck: Trachea midline, no thyromegaly or masses palpated, and no cervical lymphadenopathy. Supple, full range of motion without nuchal rigidity, or vertebral point tenderness. No Meningismus. Chest/axilla: Normal chest wall appearance and motion. Nontender with no deformity. No lesions are appreciated. Cardiovascular: Regular rate and rhythm with a normal S1 and S2. No gallops, murmurs, or rubs. Normal PMI, no JVD. No pulse deficits. Respiratory: Lungs have equal breath sounds bilaterally, clear to auscultation and percussion. No rales, rhonchi or wheezes noted. No increased work of breathing, no retractions or nasal flaring. 13:32 Skin: Warm, dry with normal turgor. Normal color with no rashes, no lesions, and no evidence of cellulitis. MS/ Extremity: Pulses equal, no cyanosis. Neurovascular intact. Full, normal range of motion. 13:32 Back: vertebral tenderness, is appreciated at lumbar spine. 13:32 Neuro: Orientation: is normal, Motor: moves all fours, strength is 5/5 in the bilateral great toes 5/5 strength with flexion and extension. Vital Signs: 13:29 BP 118 / 62; Pulse 79; Resp 17; Temp 97.5(TE); Pulse Ox 98% on R/A; jb1 13:31 Pain 8/10; jb1 MDM: 13:17 Patient medically screened. leela 13:22 Counseling: I had a detailed discussion with the patient and/or guardian regarding: the pm1 historical points, exam findings, and any diagnostic results supporting the discharge/admit diagnosis, the need for outpatient follow up, for definitive care, Has been referred to Blaine Us MD by her PCP for evaluation and treatment. 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 Patient was prescribed pm1 gabapentin by her PCP but it is not working. Reports that tramadol works well in the past for flare up of her back pain. 13:32 Data reviewed: vital signs, nurses notes. Data interpreted: Pulse oximetry: on room air pm1 is 98 %. Interpretation: normal. Administered Medications: No medications were administered Disposition: 10/19/19 13:24 Discharged to Home. Impression: Low back pain. - Condition is Stable. - Discharge Instructions: Back Pain, Adult. - Prescriptions for Tramadol 50 mg Oral Tablet - take 1 tablet by ORAL route every 8 hours As needed as needed; 20 tablet. - Medication Reconciliation Form, Thank You Letter, Antibiotic Education, Prescription Opioid Use form. - Follow up: Emergency Department; When: As needed; Reason: Worsening of condition. Follow up: Private Physician; When: 2 - 3 days; Reason: Recheck today's complaints, Continuance of care, Re-evaluation by your physician. - Problem is new. - Symptoms have improved. Addendum: 10/20/2019 17:58 Co-signature as Attending Physician, Baron Chavez MD I agree with the assessment and c conti plan of care. Signatures: Baron Chavez MD MD cha Williams, Irene, RN RN iw Felice Amin, LINDEN RIB TRIM SEPARATOR pm1 AcMarysol brown RN RN ca1 Corrections: (The following items were deleted from the chart) 13:32 13:24 10/19/2019 13:24 Discharged to Home. Impression: Low back pain. Condition is ca1 Stable. Forms are Medication Reconciliation Form, Thank You Letter, Antibiotic Education, Prescription Opioid Use. Follow up: Emergency Department; When: As needed; Reason: Worsening of condition. Follow up: Private Physician; When: 2 - 3 days; Reason: Recheck today's complaints, Continuance of care, Re-evaluation by your physician. Problem is new. Symptoms have improved. pm1
[2019-10-19 13:53] VITALS: BP 118/62; TEMP 97.5; O2SAT 98
== END 2019-10-19 13:32 | disposition home or self-care (01) ==
LOC: ER 12:54
DX: M54.5 Low back pain (principal); Z88.3 Allergy status to other anti-infective agents; Z88.6 Allergy status to analgesic agent; Z91.018 Allergy to other foods; Z91.012 Allergy to eggs
CPT/HCPCS: 99282